=== PATIENT | female | born 1990 | race African-American/Black ===

== ENCOUNTER 2017-07-22 09:46 | Emergency (ER) | payer SELFPAY ==
[2017-07-22] MEDS ORDERED: cloNIDine 0.2 MG TAB ONE (10:19)
== END 2017-07-22 10:27 | disposition home or self-care (01) ==
LOC: NAV ERS 09:46
DX: H10.9 Unspecified conjunctivitis (principal); G93.2 Benign intracranial hypertension
CPT/HCPCS: 99282

== ENCOUNTER 2018-01-05 04:47 | Emergency (ER) | payer SELFPAY ==
[2018-01-05] MEDS ORDERED: Ketorolac Tromethamine 60 MG/2 ML VIAL ONE (05:15)
== END 2018-01-05 05:40 | disposition home or self-care (01) ==
LOC: NAV ERS 04:47
DX: S29.012A Strain of muscle and tendon of back wall of thorax, initial encounter (principal); I10 Essential (primary) hypertension; E11.9 Type 2 diabetes mellitus without complications; E66.9 Obesity, unspecified; Z79.84 Long term (current) use of oral hypoglycemic drugs; Z79.899 Other long term (current) drug therapy; X58.XXXA Exposure to other specified factors, initial encounter; Y99.0 Civilian activity done for income or pay
CPT/HCPCS: 96372; J1885

== ENCOUNTER 2018-11-09 16:33 | Emergency (ER) | payer SELFPAY ==
[2018-11-09 16:55] LABS: Bilirubin Negative (Negative); Blood, Urine Small (Negative); Clarity Clear (Clear); Glucose, Urine (Dipstick) 500 mg/dL (Negative); Leukocyte Negative (Negative); Nitrite Negative (Negative); Protein, Urine (Dipstick) > or equal to 300 mg/dL (Neg-Trace); Specific Gravity, Urine 1.025 (1.005-1.030)
[2018-11-09 16:57] LABS: Pregnancy Test - Urine (BHCG) Negative (Negative); Pregu Control Bar Appear? YES (CONTROL BAR); Specific Gravity 1.025 (1.002-1.036)
[2018-11-09 16:58] LABS: Pregu Control Background? CLEAR/WHITE (CLR/WHITE)
[2018-11-09 17:03] LABS: RBC/HPF 0-3 HPF (0-3)
[2018-11-09 17:04] LABS: Bacteria/HPF Rare-Few HPF (None Seen); Other Microscopic Description NO; Squamous Epithelial 0-3 HPF (0-3); WBC/HPF None Seen HPF (0-3)
[2018-11-09] MEDS ORDERED: niCARdipine 20MG In NaCl 20 MG/200 ML BAG ONE (17:55)
[2018-11-09 18:04] LABS: #Basophils 0.1 thou/uL (0.0-0.2); #Eosinphils 0.2 thou/uL (0.0-0.7); #Lymphocytes 3.2 thou/uL (1.20-3.40); #Monocytes 0.5 thou/uL (0.11-0.59); #Neutrophils 8.8 thou/uL (1.40-6.50); %Basophils 0.8 % (0.0-1.0); %Eosinophils 1.5 % (0.0-10.0); %Lymphocytes 24.8 % (21.0-51.0); %Neutrophils 68.9 % (42.0-75.0); ALT (SGPT) 9 U/L (8-55); AST (SGOT) 14 U/L (5-34); Albumin 3.8 g/dL (3.5-5.0); Alkaline Phosphatase 86 U/L (40-150); Anion Gap 14 mmol/L (10-20); BUN (Urea Nitrogen) 15 mg/dL (7.0-18.7); Bilirubin, Total 0.5 mg/dL (0.2-1.2); Calc. Creatinine Clearance 0 mL/min (70-130); Calcium 10.3 mg/dL (7.8-10.44); Carbon Dioxide 24 mmol/L (22-29); Chloride 102 mmol/L (98-107); Estimated GFR-MDRD 59; Globulin 4.1 g/dL (2.4-3.5); Glucose 301 mg/dL (70-105); Hemoglobin 13.5 g/dL (12.0-16.0); Mean Corpuscular Hemoglobin 27.4 pg (27.0-31.0); Mean Corpuscular Volume 85.5 fL (78.0-98.0); Mean Platelet Volume 7.4 fL (7.4-10.4); Platelet Count 440 thou/uL (130-400); Potassium 3.9 mmol/L (3.5-5.1); Protein, Total 7.9 g/dL (6.0-8.3); Red Blood Cell (RBC) Count 4.93 mill/uL (4.20-5.40); Sodium 136 mmol/L (136-145); White Blood Cell (WBC) Count 12.7 thou/uL (4.8-10.8)
[2018-11-09 18:07] LABS: Magnesium 1.7 mg/dL (1.6-2.6); Phosphorus 2.6 mg/dL (2.3-4.7)
== END 2018-11-09 19:13 | disposition short-term general hospital (02) ==
LOC: NAV ERS 16:33
DX: I12.9 Hypertensive chronic kidney disease with stage 1 through stage 4 chronic kidney disease, or unspecified chronic kidney disease (principal); N18.9 Chronic kidney disease, unspecified; E11.22 Type 2 diabetes mellitus with diabetic chronic kidney disease; E11.65 Type 2 diabetes mellitus with hyperglycemia; R10.12 Left upper quadrant pain; Z79.84 Long term (current) use of oral hypoglycemic drugs
CPT/HCPCS: 36416; 80053; 81003; 81015; 81025; 82010; 83735; 84100; 85025; 93005; 96365

== ENCOUNTER 2018-12-21 11:32 | Emergency (ER) | payer SELFPAY ==
[2018-12-21] MEDS ORDERED: cloNIDine 0.1 MG TAB ONE (11:50)
[2018-12-21] MEDS ORDERED: Ibuprofen 800 MG TAB ONE (11:51)
[2018-12-21] MEDS ORDERED: cloNIDine 0.2 MG TAB ONE (11:51)
== END 2018-12-21 12:35 | disposition home or self-care (01) ==
LOC: NAV ERS 11:32
DX: S39.82XA Other specified injuries of lower back, initial encounter (principal); I10 Essential (primary) hypertension; E11.9 Type 2 diabetes mellitus without complications; E66.9 Obesity, unspecified; Z79.899 Other long term (current) drug therapy; Z79.891 Long term (current) use of opiate analgesic; Z79.84 Long term (current) use of oral hypoglycemic drugs
CPT/HCPCS: 99283

== ENCOUNTER 2018-12-22 15:13 | Emergency (ER) | payer SELFPAY ==
[2018-12-22] MEDS ORDERED: Ketorolac Tromethamine 60 MG/2 ML VIAL ONE (15:47)
== END 2018-12-22 15:55 | disposition home or self-care (01) ==
LOC: NAV ERS 15:13
DX: S39.012A Strain of muscle, fascia and tendon of lower back, initial encounter (principal); E66.9 Obesity, unspecified; E11.9 Type 2 diabetes mellitus without complications; I10 Essential (primary) hypertension; Z79.84 Long term (current) use of oral hypoglycemic drugs; Z79.891 Long term (current) use of opiate analgesic; Z79.899 Other long term (current) drug therapy; X58.XXXA Exposure to other specified factors, initial encounter
CPT/HCPCS: 96372; J1885

== ENCOUNTER → 2018-12-30 | Emergency (ER) | payer SELFPAY | LOC: NAV ERS 15:44 | DX: M54.5 Low back pain (principal); E11.9 Type 2 diabetes mellitus without complications; E78.5 Hyperlipidemia, unspecified; I10 Essential (primary) hypertension; E66.9 Obesity, unspecified; Z87.891 Personal history of nicotine dependence; Z79.84 Long term (current) use of oral hypoglycemic drugs; Z79.899 Other long term (current) drug therapy; V89.2XXA Person injured in unspecified motor-vehicle accident, traffic, initial encounter | CPT/HCPCS: 99283 ==

== ENCOUNTER 2019-08-14 20:31 | Emergency (ER) | payer SELFPAY ==
[2019-08-14] MEDS ORDERED: cloNIDine 0.1 MG TAB ONE (20:44)
[2019-08-14] MEDS ORDERED: Ondansetron ODT 4 MG TAB ONE (20:51)
[2019-08-14] MEDS ORDERED: Acetaminophen 500 MG TAB ONE (20:51)
[2019-08-14] MEDS ORDERED: Lisinopril 20 MG TAB ONE (20:51)
[2019-08-14] MEDS ORDERED: Carvedilol 3.125 MG TAB ONE (20:52)
== END 2019-08-14 21:40 | disposition home or self-care (01) ==
LOC: NAV ERS 20:31
DX: I10 Essential (primary) hypertension (principal); R51 Headache; E78.5 Hyperlipidemia, unspecified; E78.00 Pure hypercholesterolemia, unspecified; E66.9 Obesity, unspecified; E11.9 Type 2 diabetes mellitus without complications; Z79.899 Other long term (current) drug therapy; Z87.891 Personal history of nicotine dependence; Z79.1 Long term (current) use of non-steroidal anti-inflammatories (NSAID); Z79.84 Long term (current) use of oral hypoglycemic drugs
CPT/HCPCS: 93005; Q0162

== ENCOUNTER 2019-08-21 21:51 | Emergency (ER) | payer SELFPAY ==
[2019-08-21 22:12] LABS: Pregnancy Test - Urine (BHCG) Negative (Negative)
[2019-08-21 22:13] LABS: Bilirubin Negative (Negative); Blood, Urine Negative (Negative); Clarity Clear (Clear); Glucose, Urine (Dipstick) Negative (Negative); Leukocyte Negative (Negative); Nitrite Negative (Negative); Pregu Control Background? CLEAR/WHITE (CLR/WHITE); Pregu Control Bar Appear? YES (CONTROL BAR); Protein, Urine (Dipstick) Negative (Neg-Trace); Urobilinogen 0.2 mg/dL (Less than 2)
== END 2019-08-21 23:18 | disposition home or self-care (01) ==
LOC: NAV ERS 21:51
DX: N94.0 Mittelschmerz (principal); N30.80 Other cystitis without hematuria
CPT/HCPCS: 81003; 81025; 99284

== ENCOUNTER 2020-03-22 15:25 | Emergency (ER) | payer MEDICAID, SELFPAY ==
[2020-03-22 16:03] LABS: Bilirubin Negative (Negative); Blood, Urine Negative (Negative); Clarity Clear (Clear); Glucose, Urine (Dipstick) 500 mg/dL (Negative); Leukocyte Negative (Negative); Nitrite Negative (Negative); Protein, Urine (Dipstick) Negative (Neg-Trace)
[2020-03-22 16:16] LABS: Pregnancy Test - Urine (BHCG) Negative (Negative); Pregu Control Background? CLEAR/WHITE (CLR/WHITE); Pregu Control Bar Appear? YES (CONTROL BAR)
== END 2020-03-22 16:59 | disposition home or self-care (01) ==
LOC: NAV ERS 15:25
DX: N89.8 Other specified noninflammatory disorders of vagina (principal); R30.0 Dysuria; E11.9 Type 2 diabetes mellitus without complications; E78.5 Hyperlipidemia, unspecified; E78.00 Pure hypercholesterolemia, unspecified; Z87.891 Personal history of nicotine dependence; Z79.84 Long term (current) use of oral hypoglycemic drugs; Z79.899 Other long term (current) drug therapy
CPT/HCPCS: 81003; 81025; 99283

== ENCOUNTER 2020-04-15 17:58 | Emergency (ER) | payer MEDICAID, OTHER ==
[2020-04-15] MEDS ORDERED: Acetaminophen 500 MG TAB ONE (18:08)
[2020-04-15] MEDS ORDERED: Sodium Chloride 0.9% 1,000 ML ONE (18:31)
[2020-04-15 19:23] LABS: ALT (SGPT) 12 U/L (8-55); AST (SGOT) 12 U/L (5-34); Albumin 3.7 g/dL (3.5-5.0); Alkaline Phosphatase 96 U/L (40-110); Anion Gap 16 mmol/L (10-20); BUN (Urea Nitrogen) 25 mg/dL (7.0-18.7); Bilirubin, Total 0.7 mg/dL (0.2-1.2); Calc. Creatinine Clearance 0 mL/min (70-130); Calcium 9.5 mg/dL (7.8-10.44); Carbon Dioxide 21 mmol/L (22-29); Chloride 97 mmol/L (98-107); Estimated GFR-MDRD 36; Globulin 4.3 g/dL (2.4-3.5); Glucose 354 mg/dL (70-105); Potassium 4.2 mmol/L (3.5-5.1); Sodium 130 mmol/L (136-145)
--- NOTE | 2020-04-15 19:23 | RAD ---
EXAM: CHEST ONE VIEW PORTABLE: 04/15/20 HISTORY: Shortness of breath, cough, fever. COMPARISON: 11/09/18. FINDINGS: Heart size is normal. The lungs are clear. No confluent pneumonia, overt edema, pleural effusion or o ther acute process. IMPRESSION: No acute intrathoracic disease. Stable from prior study. POS: RRE
[2020-04-15 19:32] LABS: Hemoglobin 12.2 g/dL (12.0-16.0); Mean Corpuscular HGB CONC 30.1 g/dL (32.0-36.0); Mean Corpuscular Hemoglobin 27.1 pg (27.0-31.0); Mean Corpuscular Volume 89.9 fL (78.0-98.0); Mean Platelet Volume 8.7 fL (7.4-10.4); Platelet Count 351 thou/uL (130-400); RBC Distribution Width 12.8 % (11.5-14.5); White Blood Cell (WBC) Count 6.9 thou/uL (4.8-10.8)
[2020-04-15 19:57] LABS: Band 2 % (5-11); Lymphocytes 21 % (21-51); MDiff Complete? YES; Monocytes 10 % (0-10); Neutrophil 66 % (42-75); Platelet Morphology Comment Appears Adequate; RBC Morphology Normal
[2020-04-17 12:41] LABS: SARS-CoV-2 MS2 Positive; SARS-CoV-2 N Gene Positive; SARS-CoV-2 S Gene Positive; SARS-CoV-2 orf1ab Positive
== END 2020-04-15 19:55 | disposition home or self-care (01) ==
LOC: NAV ERS 17:58
DX: U07.1 COVID-19 (principal); E11.9 Type 2 diabetes mellitus without complications; N19 Unspecified kidney failure; E87.1 Hypo-osmolality and hyponatremia; E66.9 Obesity, unspecified; E78.5 Hyperlipidemia, unspecified; E78.00 Pure hypercholesterolemia, unspecified; I10 Essential (primary) hypertension; Z87.891 Personal history of nicotine dependence; Z79.899 Other long term (current) drug therapy; Z79.84 Long term (current) use of oral hypoglycemic drugs; Z79.891 Long term (current) use of opiate analgesic
CPT/HCPCS: 71045; 80053; 83605; 85025; 85379; 87635; 96360; J7050; U0003

== ENCOUNTER 2020-05-28 23:49 | Emergency (ER) | payer MEDICAID, SELFPAY ==
[2020-05-29] MEDS ORDERED: Ondansetron PF 4 MG/2 ML Vial ONE (00:19)
[2020-05-29] MEDS ORDERED: Ketorolac Tromethamine 30 MG/ML VIAL ONE (00:19)
[2020-05-29 00:31] LABS: Bilirubin Negative (Negative); Blood, Urine Negative (Negative); Clarity Clear (Clear); Glucose, Urine (Dipstick) 500 mg/dL (Negative); Ketone, Urine Negative (Negative); Leukocyte Negative (Negative); Nitrite Negative (Negative); Protein, Urine (Dipstick) Negative (Neg-Trace); pH, Urine 5.5 (5.0-9.0)
[2020-05-29 00:33] LABS: Pregnancy Test - Urine (BHCG) Negative (Negative); Pregu Control Background? CLEAR/WHITE (CLR/WHITE); Pregu Control Bar Appear? YES (CONTROL BAR)
[2020-05-29 00:36] LABS: #Basophils 0.1 thou/uL (0.0-0.2); #Eosinphils 0.2 thou/uL (0.0-0.7); #Monocytes 0.7 thou/uL (0.11-0.59); #Neutrophils 8.7 thou/uL (1.40-6.50); %Basophils 0.5 % (0.0-1.0); %Eosinophils 1.4 % (0.0-10.0); %Lymphocytes 29.1 % (21.0-51.0); %Monocytes 5.3 % (0.0-10.0); %Neutrophils 63.7 % (42.0-75.0); Mean Corpuscular Hemoglobin 27.6 pg (27.0-31.0); Mean Corpuscular Volume 89.1 fL (78.0-98.0); Mean Platelet Volume 8.6 fL (7.4-10.4); Platelet Count 409 thou/uL (130-400); RBC Distribution Width 12.9 % (11.5-14.5); Red Blood Cell (RBC) Count 4.34 mill/uL (4.20-5.40); White Blood Cell (WBC) Count 13.7 thou/uL (4.8-10.8)
[2020-05-29 00:58] LABS: ALT (SGPT) 12 U/L (8-55); AST (SGOT) 10 U/L (5-34); Albumin 3.8 g/dL (3.5-5.0); Alkaline Phosphatase 92 U/L (40-110); Anion Gap 15 mmol/L (10-20); BUN (Urea Nitrogen) 29 mg/dL (7.0-18.7); Bilirubin, Total 0.6 mg/dL (0.2-1.2); Calc. Creatinine Clearance 0 mL/min (70-130); Calcium 9.8 mg/dL (7.8-10.44); Carbon Dioxide 24 mmol/L (22-29); Chloride 97 mmol/L (98-107); Estimated GFR-MDRD 34; Globulin 4.4 g/dL (2.4-3.5); Glucose 388 mg/dL (70-105); Lipase 36 U/L (8-78); Potassium 4.2 mmol/L (3.5-5.1); Protein, Total 8.2 g/dL (6.0-8.3); Sodium 132 mmol/L (136-145)
--- NOTE | 2020-05-29 08:28 | CT ---
PRELIMINARY REPORT/[facility]/EMERGENCY AFTER HOURS PROCEDURE: EXAM: CT Abdomen and Pelvis Without Intravenous Contrast CLINICAL HISTORY: LEFT SIDED ABDOMEN PAIN X I DAY. TECHNIQUE: Axial computed tomography images of the abdomen and pelvis without intravenous contrast. Coronal and sagittal reformatted images provided. CONTRAST: None. COMPARISON: None provided. FINDINGS: LUNG BASES: No basilar airspace consolidation or pleural effusion. LIVER: Unremarkable. GALLBLADDER AND BILE DUCTS: Unremarkable. No calcified stone. No ductal dilation. PANCREAS: Unremarkable. SPLEEN: Unremarkable. ADRENAL GLANDS: Unremarkable. KIDNEYS, URETERS, AND BLADDER: Unremarkable. No hydronephrosis or nephrolithiasis. No ureteral or bladder calculi. STOMACH AND BOWEL: No obstruction. No wall thickening. No CT evidence of colitis or acute diverticulitis. APPENDIX: No CT evidence for appendicitis. PERITONEUM: No free fluid. No free air. LYMPH NODES: No lymphadenopathy. REPRODUCTIVE: Unremarkable as visualized. VASCULATURE: No aortic aneurysm. ABDOMINAL WALL AND SOFT TISSUES: Unremarkable. BONES: No fracture or suspicious osseous abnormality. IMPRESSION: No acute intra-abdominal or pelvic abnormality. ELECTRONICALLY SIGNED BY: Onesimo Leggett M.D. May 29, 2020 2:01:33 AM CDT This report is intended for review by the ordering physician only, in accordance of law. If you recei ve this report in error, please call [facility] at [phone]. FINAL REPORT ABDOMEN AND PELVIC CT SCAN WITHOUT IV CONTRAST EMERGENCY AFTER HOURS EXAM 0120 HOURS 05/29/2020 FINDINGS/IMPRESSION: No significant acute process in the abdomen or pelvis. This report is in agreement with preliminary report by [facility]. POS: RRE
== END 2020-05-29 02:23 | disposition home or self-care (01) ==
LOC: NAV ERS 23:49
DX: A08.4 Viral intestinal infection, unspecified (principal); E11.65 Type 2 diabetes mellitus with hyperglycemia; N28.9 Disorder of kidney and ureter, unspecified; E78.5 Hyperlipidemia, unspecified; I10 Essential (primary) hypertension; Z87.891 Personal history of nicotine dependence; Z79.4 Long term (current) use of insulin; Z79.899 Other long term (current) drug therapy
CPT/HCPCS: 74176; 80053; 81003; 81025; 83690; 85025; 96361; 96374; 96375; J1885; J2405

== ENCOUNTER 2020-07-23 22:25 | Emergency (ER) | payer SELFPAY ==
[2020-07-23] MEDS ORDERED: Lidocaine Viscous Sol 2% 15 ml UD Cup ONE (23:14)
[2020-07-23] MEDS ORDERED: Mag-Al Plus 1200 MG/1200 MG/120 MG/30 ML UDCUP ONE (23:14)
== END 2020-07-23 23:55 | disposition home or self-care (01) ==
LOC: NAV ERS 22:25
DX: K29.00 Acute gastritis without bleeding (principal); I10 Essential (primary) hypertension; E66.9 Obesity, unspecified; E11.9 Type 2 diabetes mellitus without complications; E78.5 Hyperlipidemia, unspecified; E78.00 Pure hypercholesterolemia, unspecified; Z87.891 Personal history of nicotine dependence; Z79.4 Long term (current) use of insulin; Z79.899 Other long term (current) drug therapy
CPT/HCPCS: 99283

== ENCOUNTER 2020-07-26 15:23 | Emergency (ER) | payer SELFPAY ==
[2020-07-26] MEDS ORDERED: predniSONE 20 MG TAB ONE (15:45)
== END 2020-07-26 15:50 | disposition home or self-care (01) ==
LOC: NAV ERS 15:23
DX: M54.5 Low back pain (principal); E78.5 Hyperlipidemia, unspecified; E78.00 Pure hypercholesterolemia, unspecified; I10 Essential (primary) hypertension; E11.9 Type 2 diabetes mellitus without complications; Z87.891 Personal history of nicotine dependence; Z79.4 Long term (current) use of insulin; Z79.899 Other long term (current) drug therapy
CPT/HCPCS: 99283; J7512

== ENCOUNTER 2020-09-03 17:14 | Emergency (ER) | payer SELFPAY ==
[~2020-09-03 17:14] MED LIST: Iopamidol 370 76% 100 ML VIAL ONE
[2020-09-03 17:58] LABS: Bilirubin Negative (Negative); Blood, Urine Negative (Negative); Glucose, Urine (Dipstick) 250 mg/dL (Negative); Ketone, Urine Negative (Negative); Leukocyte Negative (Negative); Nitrite Negative (Negative); Protein, Urine (Dipstick) 100 mg/dL (Neg-Trace); pH, Urine 5.5 (5.0-9.0)
[2020-09-03 18:10] LABS: Clarity SL HAZY (Clear)
[2020-09-03 18:11] LABS: RBC/HPF 0-3 HPF (0-3); Specific Gravity, Urine 1.023 (1.002-1.036)
[2020-09-03 18:57] LABS: #Eosinphils 0.2 thou/uL (0.0-0.7); #Monocytes 0.6 thou/uL (0.11-0.59); #Neutrophils 8.2 thou/uL (1.40-6.50); %Basophils 0.3 % (0.0-1.0); %Eosinophils 1.7 % (0.0-10.0); %Monocytes 4.8 % (0.0-10.0); %Neutrophils 68.1 % (42.0-75.0); Hemoglobin 12.7 g/dL (12.0-16.0); Mean Corpuscular HGB CONC 31.6 g/dL (32.0-36.0); Mean Corpuscular Hemoglobin 27.8 pg (27.0-31.0); Mean Corpuscular Volume 88.2 fL (78.0-98.0); Mean Platelet Volume 7.3 fL (7.4-10.4); Platelet Count 416 thou/uL (130-400); RBC Distribution Width 14.4 % (11.5-14.5); Red Blood Cell (RBC) Count 4.56 mill/uL (4.20-5.40)
[2020-09-03 19:16] LABS: Anion Gap 19 mmol/L (10-20); BUN (Urea Nitrogen) 16 mg/dL (7.0-18.7); Calc. Creatinine Clearance 0 mL/min (70-130); Carbon Dioxide 18 mmol/L (22-29); Chloride 102 mmol/L (98-107); Glucose 226 mg/dL (70-105); Sodium 134 mmol/L (136-145)
[2020-09-03 19:17] LABS: Potassium 4.9 mmol/L (3.5-5.1)
[2020-09-03] MEDS ORDERED: Sodium Chloride 0.9% 1,000 ML ONE (19:35)
[2020-09-03 20:06] LABS: Pregnancy Test - Urine (BHCG) Negative (Negative); Pregu Control Background? CLEAR/WHITE (CLR/WHITE); Pregu Control Bar Appear? YES (CONTROL BAR)
[2020-09-03 20:07] LABS: Specific Gravity 1.023 (1.002-1.036)
[2020-09-03] MEDS ORDERED: cefTRIAXone\\ROCEPHIN 1 GM VIAL ONE (20:31)
[2020-09-03] MEDS ORDERED: Sodium Chloride 0.9% 100 ML ONE (20:31)
[2020-09-03] MEDS ORDERED: Sodium Chloride 0.9% 0 ML ONE (20:31)
--- NOTE | 2020-09-03 21:07 | CT ---
CT ABDOMEN AND PELVIS WITH CONTRAST: 09/03/20 COMPARISON: 05/29/20 and 08/31/07. HISTORY: Lower abdominal pain that has been going for a few days and is getting worse. TECHNIQUE: Multiple contiguous axial images were obtained in a CT of the abdomen and pelvis with contrast. Sagit forrest and coronal reformats were performed. FINDINGS: The liver, gallbladder, kidneys, adrenal glands, spleen, and pancreas are unremarkable. No free air, free fluid or stranding changes are seen in the abdomen or pelvis. The reproductive organs show no suspicious abnormality. A dominant follicle is seen in the left ovary measuring 3.6 cm in size. The large and small bowel are unremarkable. The appendix is normal. No abd ominal or pelvic lymphadenopathy is seen. Degenerative changes are seen in the spine. The visualized inferior thorax and abdominal wall soft ti ssues are unremarkable. IMPRESSION: Left ovarian cyst/follicle; otherwise unremarkable exam. POS: EAA
[2020-09-05 20:33] LABS: Chlam.trachomatis by PCR,Urine Not Detected (NotDetected)
== END 2020-09-03 22:12 | disposition home or self-care (01) ==
LOC: NAV ERS 17:14
DX: A41.9 Sepsis, unspecified organism (principal); N30.90 Cystitis, unspecified without hematuria; I10 Essential (primary) hypertension; E11.9 Type 2 diabetes mellitus without complications; E78.5 Hyperlipidemia, unspecified; Z87.891 Personal history of nicotine dependence; Z79.899 Other long term (current) drug therapy
CPT/HCPCS: 74177; 80048; 81003; 81015; 81025; 83605; 85025; 87040; 87491; 87591; 96365; J0696; J3490; J7050; Q9967

== ENCOUNTER 2020-12-19 12:26 | Emergency (ER) | payer OTHER, SELFPAY ==
[2020-12-19 13:06] LABS: ALT (SGPT) 9 U/L (8-55); Albumin 3.8 g/dL (3.5-5.0); Alkaline Phosphatase 100 U/L (40-110); Anion Gap 17 mmol/L (10-20); BUN (Urea Nitrogen) 21 mg/dL (7.0-18.7); Bilirubin, Total 0.8 mg/dL (0.2-1.2); Calc. Creatinine Clearance 0 mL/min (70-130); Calcium 9.5 mg/dL (7.8-10.44); Carbon Dioxide 21 mmol/L (22-29); Chloride 98 mmol/L (98-107); Globulin 4.4 g/dL (2.4-3.5); Glucose 390 mg/dL (70-105); Potassium 4.8 mmol/L (3.5-5.1); Protein, Total 8.2 g/dL (6.0-8.3); Sodium 131 mmol/L (136-145)
[2020-12-19] MEDS ORDERED: Pantoprazole 40 MG VIAL ONE (13:09)
[2020-12-19] MEDS ORDERED: Mag-Al Plus 1200 MG/1200 MG/120 MG/30 ML UDCUP ONE (13:09)
[2020-12-19] MEDS ORDERED: Sodium Chloride 0.9% 1,000 ML ONE (13:09)
[2020-12-19] MEDS ORDERED: Lidocaine Viscous Sol 2% 15 ml UD Cup ONE (13:09)
[2020-12-19 13:15] LABS: #Eosinphils 0.1 thou/uL (0.0-0.7); #Lymphocytes 2.8 thou/uL (1.20-3.40); #Monocytes 0.6 thou/uL (0.11-0.59); %Basophils 0.4 % (0.0-1.0); %Eosinophils 1.2 % (0.0-10.0); %Neutrophils 71.4 % (42.0-75.0); Hemoglobin 12.4 g/dL (12.0-16.0); Mean Corpuscular Hemoglobin 27.8 pg (27.0-31.0); Mean Platelet Volume 7.7 fL (7.4-10.4); Platelet Count 373 thou/uL (130-400); RBC Distribution Width 12.7 % (11.5-14.5); Red Blood Cell (RBC) Count 4.45 mill/uL (4.20-5.40); White Blood Cell (WBC) Count 12.6 thou/uL (4.8-10.8)
[2020-12-19 13:16] LABS: AST (SGOT) 14 U/L (5-34)
== END 2020-12-19 14:20 | disposition home or self-care (01) ==
LOC: NAV ERS 12:26
DX: K29.70 Gastritis, unspecified, without bleeding (principal); E11.9 Type 2 diabetes mellitus without complications; E78.5 Hyperlipidemia, unspecified; E78.00 Pure hypercholesterolemia, unspecified; I10 Essential (primary) hypertension; E66.9 Obesity, unspecified; Z87.891 Personal history of nicotine dependence; Z79.4 Long term (current) use of insulin; Z79.899 Other long term (current) drug therapy
CPT/HCPCS: 71045; 80053; 83690; 84484; 85025; 93005; 96374; C9113; J7050

== ENCOUNTER 2021-07-13 23:09 | Emergency (ER) | payer SELFPAY ==
[2021-07-13] MEDS ORDERED: Mag-Al Plus 1200 MG/1200 MG/120 MG/30 ML UDCUP ONE (23:47)
== END 2021-07-14 00:20 | disposition home or self-care (01) ==
LOC: NAV ERS 23:09
DX: S29.012A Strain of muscle and tendon of back wall of thorax, initial encounter (principal); K21.9 Gastro-esophageal reflux disease without esophagitis; I10 Essential (primary) hypertension; E11.9 Type 2 diabetes mellitus without complications; E78.5 Hyperlipidemia, unspecified; E78.00 Pure hypercholesterolemia, unspecified; Z87.891 Personal history of nicotine dependence
CPT/HCPCS: 93005

== ENCOUNTER 2021-08-02 22:18 | Emergency (ER) | payer SELFPAY | END 2021-08-02 23:19 | disposition home or self-care (01) | LOC: NAV ERS 22:18 | DX: M72.2 Plantar fascial fibromatosis (principal); E11.9 Type 2 diabetes mellitus without complications; E78.5 Hyperlipidemia, unspecified; I10 Essential (primary) hypertension; Z87.891 Personal history of nicotine dependence ==

== ENCOUNTER 2021-11-17 06:49 | Emergency (ER) | payer SELFPAY ==
[2021-11-17] MEDS ORDERED: Lidocaine Viscous Sol 2% 15 ml UD Cup ONE (07:41)
[2021-11-17] MEDS ORDERED: Milk Of Magnesia 30 ML UDCUP ONE (07:41)
[2021-11-17] MEDS ORDERED: Mag-Al Plus 1200 MG/1200 MG/120 MG/30 ML UDCUP ONE (07:43)
== END 2021-11-17 09:12 | disposition home or self-care (01) ==
LOC: NAV ERS 06:49
DX: R07.89 Other chest pain (principal); E11.9 Type 2 diabetes mellitus without complications; E78.5 Hyperlipidemia, unspecified; E78.00 Pure hypercholesterolemia, unspecified; I10 Essential (primary) hypertension; Z79.899 Other long term (current) drug therapy
CPT/HCPCS: 71045; 84484; 93005

== ENCOUNTER 2022-01-07 17:49 | Emergency (ER) | payer MEDICAID, SELFPAY ==
[2022-01-07] MEDS ORDERED: Ibuprofen 800 MG TAB ONE (18:41)
[2022-01-07 18:49] LABS: Bilirubin Negative (Negative); Blood, Urine Negative (Negative); Clarity Clear (Clear); Glucose, Urine (Dipstick) Negative (Negative); Ketone, Urine Negative (Negative); Leukocyte Negative (Negative); Nitrite Negative (Negative); Protein, Urine (Dipstick) Negative (Neg-Trace); Specific Gravity, Urine 1.025 (1.005-1.030); pH, Urine 5.5 (5.0-9.0)
[2022-01-07] MEDS ORDERED: predniSONE 20 MG TAB ONE (19:35)
== END 2022-01-07 19:40 | disposition home or self-care (01) ==
LOC: NAV ERS 17:49
DX: R10.9 Unspecified abdominal pain (principal); I10 Essential (primary) hypertension; E11.9 Type 2 diabetes mellitus without complications; E78.5 Hyperlipidemia, unspecified; E78.00 Pure hypercholesterolemia, unspecified; Z79.4 Long term (current) use of insulin; Z79.899 Other long term (current) drug therapy
CPT/HCPCS: 81003; 99284; J7512

== ENCOUNTER 2022-03-24 19:25 | Emergency (ER) | payer MEDICAID, SELFPAY ==
[2022-03-24 20:05] LABS: #Basophils 0.1 thou/uL (0.0-0.2); #Eosinphils 0.2 thou/uL (0.0-0.7); #Lymphocytes 2.9 thou/uL (1.20-3.40); #Monocytes 0.6 thou/uL (0.11-0.59); #Neutrophils 5.9 thou/uL (1.40-6.50); %Basophils 0.8 % (0.0-1.0); %Eosinophils 1.7 % (0.0-10.0); %Lymphocytes 30.5 % (21.0-51.0); Hemoglobin 11.2 g/dL (12.0-16.0); Mean Corpuscular HGB CONC 30.4 g/dL (32.0-36.0); Mean Corpuscular Volume 92.3 fL (78.0-98.0); Mean Platelet Volume 8.3 fL (7.4-10.4); Platelet Count 336 thou/uL (130-400); RBC Distribution Width 14.4 % (11.5-14.5); Red Blood Cell (RBC) Count 4.01 mill/uL (4.20-5.40); White Blood Cell (WBC) Count 9.7 thou/uL (4.8-10.8)
[2022-03-24] MEDS ORDERED: Mag-Al Plus 1200 MG/1200 MG/120 MG/30 ML UDCUP ONE (20:15)
[2022-03-24] MEDS ORDERED: Aspirin Chewable 81 MG TAB ONE (20:15)
[2022-03-24 20:22] LABS: ALT (SGPT) 17 U/L (8-55); AST (SGOT) 15 U/L (5-34); Albumin 3.6 g/dL (3.5-5.0); Alkaline Phosphatase 83 U/L (40-110); Anion Gap 18 mmol/L (10-20); BUN (Urea Nitrogen) 24 mg/dL (7.0-18.7); Bilirubin, Total 0.5 mg/dL (0.2-1.2); Calc. Creatinine Clearance 0 mL/min (70-130); Calcium 9.5 mg/dL (7.8-10.44); Carbon Dioxide 20 mmol/L (22-29); Chloride 103 mmol/L (98-107); Globulin 3.6 g/dL (2.4-3.5); Glucose 187 mg/dL (70-105); Lipase 37 U/L (8-78); Potassium 4.6 mmol/L (3.5-5.1); Protein, Total 7.2 g/dL (6.0-8.3); Sodium 136 mmol/L (136-145)
== END 2022-03-24 23:54 | disposition home or self-care (01) ==
LOC: NAV ERS 19:25
DX: R07.89 Other chest pain (principal); I10 Essential (primary) hypertension; E11.9 Type 2 diabetes mellitus without complications; E78.5 Hyperlipidemia, unspecified; E78.00 Pure hypercholesterolemia, unspecified; Z79.84 Long term (current) use of oral hypoglycemic drugs; Z79.899 Other long term (current) drug therapy
CPT/HCPCS: 36415; 71045; 80053; 83690; 84484; 85025; 93005; 94760

== ENCOUNTER 2022-06-15 07:39 | Emergency (ER) | payer SELFPAY ==
[2022-06-15] MEDS ORDERED: Lidocaine Viscous Sol 2% 15 ml UD Cup ONE (08:29)
[2022-06-15] MEDS ORDERED: Aspirin Chewable 81 MG TAB ONE (08:29)
[2022-06-15] MEDS ORDERED: Mag-Al Plus 1200 MG/1200 MG/120 MG/30 ML UDCUP ONE (08:29)
[2022-06-15 08:31] LABS: #Basophils 0.1 thou/uL (0.0-0.2); #Eosinphils 0.3 thou/uL (0.0-0.7); #Lymphocytes 2.9 thou/uL (1.20-3.40); #Monocytes 0.5 thou/uL (0.11-0.59); #Neutrophils 7.4 thou/uL (1.40-6.50); %Basophils 0.8 % (0.0-1.0); %Eosinophils 2.3 % (0.0-10.0); %Lymphocytes 25.6 % (21.0-51.0); %Monocytes 4.3 % (0.0-10.0); Hemoglobin 11.3 g/dL (12.0-16.0); Mean Corpuscular HGB CONC 30.6 g/dL (32.0-36.0); Mean Corpuscular Hemoglobin 28.1 pg (27.0-31.0); Mean Corpuscular Volume 91.8 fL (78.0-98.0); Platelet Count 347 thou/uL (130-400); RBC Distribution Width 13.6 % (11.5-14.5); Red Blood Cell (RBC) Count 4.04 mill/uL (4.20-5.40); White Blood Cell (WBC) Count 11.1 thou/uL (4.8-10.8)
[2022-06-15 08:59] LABS: ALT (SGPT) 12 U/L (8-55); AST (SGOT) 12 U/L (5-34); Albumin 3.7 g/dL (3.5-5.0); Alkaline Phosphatase 80 U/L (40-110); Anion Gap 16 mmol/L (10-20); BUN (Urea Nitrogen) 18 mg/dL (7.0-18.7); Bilirubin, Total 0.6 mg/dL (0.2-1.2); Calc. Creatinine Clearance 0 mL/min (70-130); Calcium 9.1 mg/dL (7.8-10.44); Carbon Dioxide 21 mmol/L (22-29); Chloride 104 mmol/L (98-107); Estimated GFR 51; Globulin 3.4 g/dL (2.4-3.5); Glucose 273 mg/dL (70-105); Potassium 4.3 mmol/L (3.5-5.1); Protein, Total 7.1 g/dL (6.0-8.3); Sodium 137 mmol/L (136-145)
[2022-06-15 09:09] LABS: BHCG - Serum Negative (NEGATIVE); Pregs Control Bar Appear? YES (CONTROL BAR)
[2022-06-15 11:55] LABS: Troponin I Less than 0.010 ng/mL (< 0.028)
== END 2022-06-15 12:35 | disposition home or self-care (01) ==
LOC: NAV ERS 07:39
DX: R07.9 Chest pain, unspecified (principal); E78.00 Pure hypercholesterolemia, unspecified; I10 Essential (primary) hypertension; E11.9 Type 2 diabetes mellitus without complications
CPT/HCPCS: 71045; 80053; 84484; 84703; 85025; 93005; 94760

== ENCOUNTER 2022-09-02 10:19 | Emergency (ER) | payer SELFPAY ==
[2022-09-02] MEDS ORDERED: Meclizine HCl 25 MG TAB ONE (11:19)
[2022-09-02] MEDS ORDERED: Ondansetron ODT 4 MG TAB ONE (11:19)
== END 2022-09-02 12:35 | disposition home or self-care (01) ==
LOC: NAV ERS 10:19
DX: H81.10 Benign paroxysmal vertigo, unspecified ear (principal); E11.9 Type 2 diabetes mellitus without complications; I10 Essential (primary) hypertension; E66.9 Obesity, unspecified; E78.00 Pure hypercholesterolemia, unspecified
CPT/HCPCS: 99283; Q0162

== ENCOUNTER 2022-09-11 20:27 | Emergency (ER) | payer SELFPAY ==
[2022-09-11] MEDS ORDERED: Dexamethasone 20 MG/5 ML VIAL ONE (21:28)
[2022-09-11] MEDS ORDERED: Ketorolac Tromethamine 60 MG/2 ML VIAL ONE (21:28)
== END 2022-09-11 23:35 | disposition home or self-care (01) ==
LOC: NAV ERS 20:27
DX: M94.0 Chondrocostal junction syndrome [Tietze] (principal); I10 Essential (primary) hypertension; E11.9 Type 2 diabetes mellitus without complications; E78.00 Pure hypercholesterolemia, unspecified
CPT/HCPCS: 96372; J1100; J1885

== ENCOUNTER 2022-12-17 18:45 | Emergency (ER) | payer SELFPAY ==
[2022-12-17] MEDS ORDERED: Ibuprofen 200 MG TAB ONE ×2 (20:35→20:36)
== END 2022-12-17 20:45 | disposition home or self-care (01) ==
LOC: NAV ERS 18:45
DX: K04.4 Acute apical periodontitis of pulpal origin (principal); I10 Essential (primary) hypertension; E78.00 Pure hypercholesterolemia, unspecified; E11.9 Type 2 diabetes mellitus without complications; Z79.899 Other long term (current) drug therapy
CPT/HCPCS: 99282

== ENCOUNTER 2023-03-20 13:21 | Emergency (ER) | payer MEDICAID, SELFPAY ==
[2023-03-20] MEDS ORDERED: Ondansetron ODT 4 MG TAB ONE (14:18)
== END 2023-03-20 15:00 | disposition home or self-care (01) ==
LOC: NAV ERS 13:21
DX: R11.2 Nausea with vomiting, unspecified (principal); R19.7 Diarrhea, unspecified; I10 Essential (primary) hypertension; E11.9 Type 2 diabetes mellitus without complications; E78.5 Hyperlipidemia, unspecified; E78.00 Pure hypercholesterolemia, unspecified; Z79.899 Other long term (current) drug therapy; Z79.84 Long term (current) use of oral hypoglycemic drugs
CPT/HCPCS: 99283; Q0162

== ENCOUNTER 2023-04-07 09:47 | Emergency (ER) | payer SELFPAY | END 2023-04-07 11:07 | disposition home or self-care (01) | LOC: NAV ERS 09:47 | DX: J06.9 Acute upper respiratory infection, unspecified (principal); I10 Essential (primary) hypertension; E11.9 Type 2 diabetes mellitus without complications; E78.00 Pure hypercholesterolemia, unspecified; Z20.822 Contact with and (suspected) exposure to COVID-19; Z79.899 Other long term (current) drug therapy; Z79.84 Long term (current) use of oral hypoglycemic drugs | CPT/HCPCS: 87635; 87804; 99283 ==

== ENCOUNTER 2023-06-15 19:27 | Emergency (ER) | payer OTHER, SELFPAY ==
[2023-06-15] MEDS ORDERED: traMADol HCl 50 MG TAB ONE ×2 (20:25)
== END 2023-06-15 21:07 | disposition home or self-care (01) ==
LOC: NAV ERS 19:27
DX: S29.012A Strain of muscle and tendon of back wall of thorax, initial encounter (principal); I10 Essential (primary) hypertension; E11.9 Type 2 diabetes mellitus without complications; E78.00 Pure hypercholesterolemia, unspecified; Z79.84 Long term (current) use of oral hypoglycemic drugs; Z79.899 Other long term (current) drug therapy; V89.2XXA Person injured in unspecified motor-vehicle accident, traffic, initial encounter
CPT/HCPCS: 72072

== ENCOUNTER 2023-08-10 19:53 | Emergency (ER) | payer SELFPAY ==
[2023-08-10 21:02] LABS: Bilirubin Negative (Negative); Blood, Urine Negative (Negative); Clarity Clear (Clear); Glucose, Urine (Dipstick) Negative (Negative); Ketone, Urine Trace mg/dL (Negative); Leukocyte Negative (Negative); Nitrite Negative (Negative); Protein, Urine (Dipstick) > or equal to 300 mg/dL (Neg-Trace); pH, Urine 5.5 (5.0-9.0)
[2023-08-10 21:03] LABS: Specific Gravity, Urine 1.023 (1.002-1.036)
[2023-08-10 21:04] LABS: Pregnancy Test - Urine (BHCG) Negative (Negative); Pregu Control Background? CLEAR/WHITE (CLR/WHITE); Pregu Control Bar Appear? YES (CONTROL BAR); Specific Gravity 1.023 (1.002-1.036)
[2023-08-10 21:07] LABS: CAUTI Indications for Culture Pelvic or flank pain
[2023-08-10 21:08] LABS: Bacteria/HPF 3+ HPF (None Seen); RBC/HPF None Seen HPF (0-3); Urine Culture Reflex No No; WBC/HPF None Seen HPF (0-3)
[2023-08-10 21:12] LABS: #Basophils 0.1 thou/uL (0.0-0.2); #Eosinphils 0.2 thou/uL (0.0-0.7); #Lymphocytes 2.8 thou/uL (1.20-3.40); #Monocytes 0.6 thou/uL (0.11-0.59); #Neutrophils 9.7 thou/uL (1.40-6.50); %Basophils 0.8 % (0.0-1.0); %Eosinophils 1.4 % (0.0-10.0); %Lymphocytes 20.7 % (21.0-51.0); %Monocytes 4.3 % (0.0-10.0); %Neutrophils 72.8 % (42.0-75.0); Hematocrit 40.4 % (36.0-47.0); Hemoglobin 12.5 g/dL (12.0-16.0); Mean Corpuscular Hemoglobin 27.3 pg (27.0-31.0); Mean Platelet Volume 7.2 fL (7.4-10.4); Platelet Count 388 10x3/uL (130-400); RBC Distribution Width 15.6 % (11.5-14.5); Red Blood Cell (RBC) Count 4.59 mill/uL (4.20-5.40); White Blood Cell (WBC) Count 13.3 10x3/uL (4.8-10.8)
[2023-08-10] MEDS ORDERED: Ondansetron PF 4 MG/2 ML Vial ONE ×2 (21:29→22:43)
[2023-08-10] MEDS ORDERED: Ketorolac Tromethamine 30 MG/ML VIAL ONE (21:29)
[2023-08-10] MEDS ORDERED: Sodium Chloride 0.9% 1,000 ML ONE (21:29)
[2023-08-10 21:30] LABS: ALT (SGPT) 11 U/L (8-55); AST (SGOT) 14 U/L (5-34); Albumin 4.1 g/dL (3.5-5.0); Alkaline Phosphatase 99 U/L (40-110); Anion Gap 16 mmol/L (10-20); BUN (Urea Nitrogen) 17 mg/dL (7.0-18.7); Bilirubin, Total 0.7 mg/dL (0.2-1.2); Calc. Creatinine Clearance 0 mL/min (70-130); Calcium 9.5 mg/dL (7.8-10.44); Carbon Dioxide 21 mmol/L (22-29); Chloride 105 mmol/L (98-107); Estimated GFR 51; Globulin 4.5 g/dL (2.4-3.5); Glucose 165 mg/dL (70-105); Lipase 57 U/L (8-78); Potassium 4.3 mmol/L (3.5-5.1); Protein, Total 8.6 g/dL (6.0-8.3); Sodium 138 mmol/L (136-145)
[2023-08-10] MEDS ORDERED: Morphine 2 MG/ML VIAL ONE (22:59)
[2023-08-10] MEDS ORDERED: traMADol HCl 50 MG TAB ONE ×2 (23:00→23:11)
[2023-08-10 23:48] LABS: Bilirubin Negative (Negative); Blood, Urine Trace (Negative); Clarity Clear (Clear); Glucose, Urine (Dipstick) Negative (Negative); Ketone, Urine Negative (Negative); Leukocyte Negative (Negative); Nitrite Negative (Negative); Protein, Urine (Dipstick) > or equal to 300 mg/dL (Neg-Trace); Urobilinogen 0.2 mg/dL (Less than 2); pH, Urine 5.5 (5.0-9.0)
[2023-08-10 23:56] LABS: Specific Gravity, Urine 1.028 (1.002-1.036)
[2023-08-10 23:57] LABS: Bacteria/HPF 1+ HPF (None Seen); CAUTI Indications for Culture Pelvic or flank pain; RBC/HPF 0-3 HPF (0-3); WBC/HPF 0-3 HPF (0-3)
[2023-08-10 23:58] LABS: Urine Culture Reflex No No
[2023-08-11] MEDS ORDERED: Cyclobenzaprine 10 MG TAB ONE (00:26)
== END 2023-08-11 00:30 | disposition home or self-care (01) ==
LOC: NAV ERS 19:53
DX: N39.0 Urinary tract infection, site not specified (principal); R11.2 Nausea with vomiting, unspecified; I10 Essential (primary) hypertension; E78.00 Pure hypercholesterolemia, unspecified; E11.9 Type 2 diabetes mellitus without complications; Z79.84 Long term (current) use of oral hypoglycemic drugs; Z79.899 Other long term (current) drug therapy
CPT/HCPCS: 36415; 74176; 80053; 81001; 81025; 83690; 85025; 96374; 96375; 96376; J1885; J2272; J2405; J7050

== ENCOUNTER 2023-10-14 21:59 | Emergency (ER) | payer SELFPAY ==
[2023-10-14] MEDS ORDERED: Ibuprofen 200 MG TAB ONE (23:12)
== END 2023-10-14 23:15 | disposition home or self-care (01) ==
LOC: NAV ERS 21:59
DX: R51.9 Headache, unspecified (principal); E11.9 Type 2 diabetes mellitus without complications; E78.00 Pure hypercholesterolemia, unspecified; I10 Essential (primary) hypertension; Z79.899 Other long term (current) drug therapy
CPT/HCPCS: 99283

== ENCOUNTER 2024-02-27 21:02 | Emergency (ER) | payer SELFPAY ==
[2024-02-27] MEDS ORDERED: Acetaminophen 500 MG TAB ONE (22:13)
== END 2024-02-27 22:15 | disposition home or self-care (01) ==
LOC: NAV ERS 21:02
DX: S13.4XXA Sprain of ligaments of cervical spine, initial encounter (principal); S29.019A Strain of muscle and tendon of unspecified wall of thorax, initial encounter; E11.9 Type 2 diabetes mellitus without complications; E78.00 Pure hypercholesterolemia, unspecified; I10 Essential (primary) hypertension; Z79.899 Other long term (current) drug therapy; V49.40XA Driver injured in collision with unspecified motor vehicles in traffic accident, initial encounter; Y92.481 Parking lot as the place of occurrence of the external cause
CPT/HCPCS: 99283

== ENCOUNTER 2024-07-05 09:23 | Emergency (ER) | payer SELFPAY | END 2024-07-05 10:41 | disposition home or self-care (01) | LOC: NAV ERS 09:23 | DX: S46.911A Strain of unspecified muscle, fascia and tendon at shoulder and upper arm level, right arm, initial encounter (principal); S76.011A Strain of muscle, fascia and tendon of right hip, initial encounter; R03.0 Elevated blood-pressure reading, without diagnosis of hypertension; E11.9 Type 2 diabetes mellitus without complications; E78.00 Pure hypercholesterolemia, unspecified; I10 Essential (primary) hypertension; Z79.85 Long-term (current) use of injectable non-insulin antidiabetic drugs; Z79.899 Other long term (current) drug therapy; V89.2XXA Person injured in unspecified motor-vehicle accident, traffic, initial encounter | CPT/HCPCS: 99283 ==

== ENCOUNTER 2024-10-19 19:04 | Emergency (ER) | payer OTHER, SELFPAY ==
[2024-10-19] MEDS ORDERED: Morphine 4 MG/ML VIAL ONE (19:51)
[2024-10-19] MEDS ORDERED: Sodium Chloride 0.9% 1,000 ML ONE (19:51)
[2024-10-19] MEDS ORDERED: Ondansetron PF 4 MG/2 ML Vial ONE (19:51)
[2024-10-19 20:11] LABS: #Basophils 0.1 thou/uL (0.0-0.2); #Eosinophils 0.2 thou/uL (0.0-0.7); #Lymphocytes 3.2 thou/uL (1.20-3.40); #Monocytes 0.5 thou/uL (0.11-0.59); #Neutrophils 4.9 thou/uL (1.40-6.50); %Basophils 0.9 % (0.0-1.0); %Eosinophils 2.8 % (0.0-10.0); %Lymphocytes 35.8 % (21.0-51.0); %Monocytes 5.6 % (0.0-10.0); Hematocrit 37.9 % (36.0-47.0); Hemoglobin 11.5 g/dL (12.0-16.0); Mean Corpuscular HGB CONC 30.3 g/dL (32.0-36.0); Mean Corpuscular Hemoglobin 25.5 pg (27.0-31.0); Mean Corpuscular Volume 84.3 fl (78.0-98.0); Mean Platelet Volume 7.2 fL (7.4-10.4); Platelet Count 333 10x3/uL (130-400); RBC Distribution Width 15.2 % (11.5-14.5); White Blood Cell (WBC) Count 8.9 10x3/uL (4.8-10.8)
[2024-10-19 20:28] LABS: ALT (SGPT) 12 U/L (8-55); AST (SGOT) 10 U/L (5-34); Albumin 3.8 g/dL (3.5-5.0); Alkaline Phosphatase 88 U/L (40-110); Anion Gap 12 mmol/L (10-20); BUN (Urea Nitrogen) 18 mg/dL (7.0-18.7); Bilirubin, Total 0.6 mg/dL (0.2-1.2); Calc. Creatinine Clearance 0 mL/min (70-130); Calcium 9.4 mg/dL (7.8-10.44); Carbon Dioxide 24 mmol/L (22-29); Chloride 107 mmol/L (98-107); Estimated GFR 47; Globulin 4.4 g/dL (2.4-3.5); Glucose 84 mg/dL (70-105); Lipase 97 U/L (8-78); Potassium 3.9 mmol/L (3.5-5.1); Protein, Total 8.2 g/dL (6.0-8.3); Sodium 139 mmol/L (136-145)
[2024-10-19 20:39] LABS: BHCG - Serum Negative (NEGATIVE); Pregs Control Bar Appear? YES (CONTROL BAR)
[2024-10-19 20:41] LABS: Bilirubin Negative (Negative); Blood, Urine Large (Negative); Glucose, Urine (Dipstick) Negative (Negative); Ketone, Urine Trace mg/dL (Negative); Leukocyte Negative (Negative); Nitrite Negative (Negative); Protein, Urine (Dipstick) 100 mg/dL (Neg-Trace); Specific Gravity, Urine 1.015 (1.005-1.030)
[2024-10-19 21:00] LABS: CAUTI Indications for Culture Dysuria,urgency,freq; Clarity Hazy (Clear); RBC/HPF 21-50 HPF (0-3); WBC/HPF 0-3 HPF (0-3)
[2024-10-19 21:01] LABS: Bacteria/HPF Rare-Few HPF (None Seen); Squamous Epithelial 0-3 HPF (0-3)
[2024-10-19 21:02] LABS: Urine Culture Reflex No No
== END 2024-10-19 21:40 | disposition home or self-care (01) ==
LOC: NAV ERS 19:04
DX: M54.50 Low back pain, unspecified (principal); R10.11 Right upper quadrant pain; I10 Essential (primary) hypertension; E11.9 Type 2 diabetes mellitus without complications; E78.5 Hyperlipidemia, unspecified; Z79.85 Long-term (current) use of injectable non-insulin antidiabetic drugs; Z79.899 Other long term (current) drug therapy
CPT/HCPCS: 80053; 81001; 83690; 84703; 85025; 96374; 96375; J2270; J2405; J7030

== ENCOUNTER 2024-11-11 21:24 | Emergency (ER) | payer SELFPAY ==
[2024-11-11] MEDS ORDERED: Sodium Chloride 0.9% 1,000 ML ONE (21:50)
[2024-11-11] MEDS ORDERED: Morphine 4 MG/ML VIAL ONE (21:50)
[2024-11-11] MEDS ORDERED: Ondansetron PF 4 MG/2 ML Vial ONE (21:50)
[2024-11-11 22:03] LABS: #Basophils 0.1 thou/uL (0.0-0.2); #Eosinophils 0.2 thou/uL (0.0-0.7); #Lymphocytes 3.2 thou/uL (1.20-3.40); #Monocytes 0.6 thou/uL (0.11-0.59); #Neutrophils 6.2 thou/uL (1.40-6.50); %Basophils 0.7 % (0.0-1.0); %Eosinophils 2.3 % (0.0-10.0); %Lymphocytes 31.3 % (21.0-51.0); %Monocytes 5.6 % (0.0-10.0); %Neutrophils 60.1 % (42.0-75.0); Hematocrit 37.8 % (36.0-47.0); Hemoglobin 11.4 g/dL (12.0-16.0); Mean Corpuscular HGB CONC 30.1 g/dL (32.0-36.0); Mean Corpuscular Hemoglobin 25.5 pg (27.0-31.0); Mean Corpuscular Volume 84.8 fl (78.0-98.0); Mean Platelet Volume 7.5 fL (7.4-10.4); Platelet Count 322 10x3/uL (130-400); RBC Distribution Width 14.7 % (11.5-14.5); Red Blood Cell (RBC) Count 4.46 mill/uL (4.20-5.40); White Blood Cell (WBC) Count 10.3 10x3/uL (4.8-10.8)
[2024-11-11 22:07] LABS: Bilirubin Negative (Negative); Blood, Urine Large (Negative); Clarity Clear (Clear); Glucose, Urine (Dipstick) Negative (Negative); Ketone, Urine Trace mg/dL (Negative); Leukocyte Negative (Negative); Nitrite Negative (Negative); Protein, Urine (Dipstick) 100 mg/dL (Neg-Trace)
[2024-11-11 22:09] LABS: Bacteria/HPF None Seen HPF (None Seen); CAUTI Indications for Culture Pelvic or flank pain; RBC/HPF Greater than 50 HPF (0-3); Squamous Epithelial None Seen HPF (0-3); WBC/HPF None Seen HPF (0-3)
[2024-11-11 22:10] LABS: Urine Culture Reflex No No
[2024-11-11 22:28] LABS: ALT (SGPT) 9 U/L (Less than 34); AST (SGOT) 14 U/L (11-34); Alkaline Phosphatase 88 U/L (40-110); Anion Gap 12 mmol/L (10-20); BUN (Urea Nitrogen) 21 mg/dL (7.0-18.7); Bilirubin, Total 0.7 mg/dL (0.3-1.2); Calc. Creatinine Clearance 0 mL/min (70-130); Calcium 9.6 mg/dL (7.8-10.44); Carbon Dioxide 23 mmol/L (22-29); Chloride 107 mmol/L (98-107); Estimated GFR 42; Glucose 105 mg/dL (70-105); Lipase 68 U/L (8-78); Potassium 4.2 mmol/L (3.5-5.1); Sodium 138 mmol/L (136-145)
[2024-11-12] MEDS ORDERED: Pantoprazole 40 MG VIAL ONE (00:05)
== END 2024-11-12 00:19 | disposition home or self-care (01) ==
LOC: NAV ERS 21:24
DX: R10.9 Unspecified abdominal pain (principal); R11.2 Nausea with vomiting, unspecified; E11.9 Type 2 diabetes mellitus without complications; I10 Essential (primary) hypertension
CPT/HCPCS: 74177; 80053; 81001; 83690; 85025; 96361; 96374; 96375; J2270; J2405; J2470; J7030; Q9967

== ENCOUNTER 2025-05-29 22:21 | Emergency (ER) | payer BC, SELFPAY | END 2025-05-29 23:05 | disposition home or self-care (01) | LOC: NAV ERS 22:21 | DX: G56.02 Carpal tunnel syndrome, left upper limb (principal); R29.700 NIHSS score 0; I10 Essential (primary) hypertension; E11.9 Type 2 diabetes mellitus without complications; E78.5 Hyperlipidemia, unspecified; Z79.899 Other long term (current) drug therapy; Z79.85 Long-term (current) use of injectable non-insulin antidiabetic drugs | CPT/HCPCS: 99283 ==

== ENCOUNTER 2025-06-10 09:22 | Emergency (ER) | payer SELFPAY ==
[2025-06-10] MEDS ORDERED: Acetaminophen 325 MG TAB ONE (10:03)
== END 2025-06-10 10:41 | disposition home or self-care (01) ==
LOC: NAV ERS 09:22
DX: J02.9 Acute pharyngitis, unspecified (principal); R05.9 Cough, unspecified; R09.81 Nasal congestion; E11.9 Type 2 diabetes mellitus without complications; E78.00 Pure hypercholesterolemia, unspecified; I10 Essential (primary) hypertension; Z79.4 Long term (current) use of insulin; Z79.899 Other long term (current) drug therapy
CPT/HCPCS: 87400; 87426; 99283